=== PATIENT | male | born 2000 | race Caucasian/White ===

== ENCOUNTER 2018-05-23 19:36 | Inpatient (IN) | payer SELFPAY ==
[2018-05-23] MEDS ORDERED: Ibuprofen 200 MG TAB PO PRN (19:49)
[2018-05-23] MEDS ORDERED: Ondansetron PF 4 MG/2 ML Vial IVP PRN (19:49)
[2018-05-23] MEDS ORDERED: Diabetic Tussin 200 MG/10 ML UDCUP PO PRN (19:49)
[2018-05-23] MEDS ORDERED: Ondansetron ODT 4 MG TAB PO PRN (19:49)
[2018-05-23] MEDS ORDERED: Acetaminophen 500 MG TAB PO PRN (19:49)
[2018-05-23] MEDS ORDERED: Benzonatate 100 MG CAP PO PRN (19:49)
[2018-05-23] MEDS ORDERED: Budesonide 0.5 MG/2 ML NEB INH SCH (20:45)
[2018-05-23] MEDS: Sodium Chloride 0.9% 1,000 ML IV SCH (20:51)
[2018-05-23] MEDS: Famotidine 20 MG TAB PO SCH (20:51)
[2018-05-23] MEDS: Oseltamivir 75 MG CAP PO SCH (20:52)
--- NOTE | 2018-05-23 21:34 | HP ---
CHIEF COMPLAINT: Shortness of breath. HISTORY OF PRESENT ILLNESS: This is a 17-year-old male who initially presented to [facility] complaining of increased shortness of breath and general malaise over the last 24 hours. The patient states he has a history of asthma, taking albuterol metered dose inhaler and previously on Pulmicort. The patient states he had been using his inhaler increasingly and went jogging on 05/22/2018 with worsening shortness of breath after the run. The patient states his roommate was recently diagnosed with influenza A and had been initiated on Tamiflu in the last 24 to 48 hours. The patient denied any documented fever or productive cough, but did admit to difficulty taking a deep breath and feeling like his chest was tight. The patient denies any recent new medication exposure, travel history, or recent pneumonia. The patient did state he was diagnosed with mononucleosis at the beginning of the fall in 2017, requiring several weeks of convalescence. In the emergency room, the patient underwent general evaluation including chest imaging showing no acute infiltrates. The patient was evaluated and found with influenza A positivity. The patient received bronchodilator therapy as well as Zosyn, Tylenol, Toradol, and intravenous normal saline x3 liters. The patient was noted with persistent tachycardia and elevated lactic acid level and meeting sepsis protocol. The patient was transferred to [facility] for further evaluation and admission. PAST MEDICAL HISTORY: Moderate asthma. PAST SURGICAL HISTORY: Reviewed and negative. CURRENT MEDICATIONS: 1. Albuterol sulfate metered dose inhaler p.r.n. 2. Pulmicort last taken 6 months prior to this evaluation. ALLERGIES: TO ZITHROMAX, NUTS, AND SHELLFISH. FAMILY HISTORY: No inheritable disease per the patient's report. SOCIAL HISTORY: Occasionally uses tobacco products. Social alcohol use. No illicit drug use. Currently, a student at [employer] and seeking a degree in agricultural economics. Accompanied by his mother in the hospital. REVIEW OF SYSTEMS: CONSTITUTIONAL: Negative for weight loss or gain, ability to conduct usual activities. SKIN: Negative for rash, itching. EYES: Negative for double vision, pain. ENT/MOUTH: Negative for nose bleeding, neck stiffness, pain, tenderness. CARDIOVASCULAR: Negative for palpitations, dyspnea on exertion, orthopnea. RESPIRATORY: Negative for shortness of breath, wheezing, cough, hemoptysis, fever or night sweats. GASTROINTESTINAL: Negative for poor appetite, abdominal pain, heartburn, nausea, vomiting, constipation, or diarrhea. GENITOURINARY: Negative for urgency, frequency, dysuria, nocturia. MUSCULOSKELETAL: Negative for pain, swelling. NEUROLOGIC/PSYCHIATRIC: Negative for anxiety, depression. ALLERGY/IMMUNOLOGIC: Negative for skin rash, bleeding tendency. Otherwise negative except as stated per HPI. PHYSICAL EXAMINATION: VITAL SIGNS: In the emergency room, blood pressure 103/51, pulse 124, respiratory rate 19, temperature 99.4 degrees Fahrenheit, and O2 saturation 100% on room air. GENERAL APPEARANCE: This is a 17-year-old male, alert and oriented x3, pleasant, in no acute distress. HEENT: Pupils are equal, round, and reactive to light and accommodation. Extraocular muscles are intact. No scleral icterus. No conjunctival injection. Nares patent. OP is clear. Teeth in good repair. NECK: Supple. No cervical adenopathy. No thyromegaly. No carotid bruits. No JVD appreciated. Cervical spine with full active and passive range of motion. No meningeal signs noted. CHEST: Expiratory wheezes with diminished breath sounds in the bases bilaterally. CARDIOVASCULAR: S1 and S2 with tachycardia. No murmur, rub, or gallop appreciated. ABDOMEN: Flat, soft, nontender, and nondistended. Bowel sounds are positive in all 4 quadrants. There is no hepatosplenomegaly. No abdominal bruits. No rebound or guarding appreciated. EXTREMITIES: Warm and dry with fair turgor. No clubbing, cyanosis, or asymmetric edema appreciated. Pulses are palpable distally at the dorsalis pedis, posterior tibial, and popliteal arteries bilaterally. Capillary refill less than 2 seconds. NEUROLOGIC: Cranial nerves 2 through 12 are grossly intact. No focal or lateralizing signs appreciated. PERTINENT LAB AND X-RAY FINDINGS: Sodium 134, potassium is 3.8, CO2 of 21, chloride 103, BUN 9, creatinine 1.1, and calcium 8.4. LFTs within normal limits. Venous blood gas showed a pH of 7.42, pCO2 of 28.2, PO2 of 48, lactate 4.55, bicarb 18.1, and O2 saturation 84%. Influenza A positive. CBC showed a white blood cell count of 6.0, hemoglobin 12.9, hematocrit 39, and platelet count 158. Two views of the chest dated 05/23/2018 showed no acute cardiopulmonary process. ASSESSMENT AND PLAN: 1. Sepsis. The patient will be admitted to the telemetry unit. The patient meets sepsis criteria with tachycardia, mild hypotension, lactic acidosis, and tachypnea. We will continue treatment as outlined. 2. The patient received IV fluid resuscitation per protocol in the emergency department. 3. Influenza A positive. We will initiate Tamiflu 75 mg p.o. b.i.d. Add Solu-Medrol 40 mg IV q.6 hours. We will add additional empiric antibiotic coverage with cefepime 2 g IV q.12 hours. 4. Acute asthma exacerbation. Continue oxygen as needed to maintain O2 saturations greater than 90%. Start Pulmicort nebulized solution b.i.d. DuoNeb q.4 hours scheduled. 5. Dehydration. We will continue IV fluids with normal saline 100 mL/h. Encourage increased p.o. free water intake. 6. Lactic acidosis. We will continue IV fluids as outlined previously. Serial lactic acid assessment per sepsis protocol. 7. Prophylaxis. Sequential compression devices while in bed. Pepcid 20 mg p.o. b.i.d. Influenza vaccination prior to discharge. Respiratory isolation protocol. CODE STATUS: Full. Surrogate medical decision maker is the patient's mother. Job ID: [id number]
[2018-05-23] MEDS: Cefepime 2 GM in Sodium Chloride 0.9% 100 ML IVPB SCH (21:42)
[2018-05-23 22:41] VITALS: BMI 22.3
[2018-05-24 00:11] LABS: Lactic Acid 0.9 mmol/L (0.5-2.2)
[2018-05-24 05:31] LABS: Anion Gap 13 mmol/L (10-20); BUN (Urea Nitrogen) 10 mg/dL (8.4-21.0); Calc. Creatinine Clearance 137 mL/min (70-130); Calcium 8.8 mg/dL (7.8-10.44); Carbon Dioxide 19 mmol/L (22-29); Chloride 110 mmol/L (98-107); Estimated GFR-MDRD Greater than 90; Glucose 130 mg/dL (70-105); Potassium 4.2 mmol/L (3.5-5.1); Sodium 138 mmol/L (136-145)
[2018-05-24] MEDS ORDERED: Budesonide 0.5 MG/2 ML NEB INH SCH (06:30)
[2018-05-24 07:10] LABS: Band 10 % (5-11); Hemoglobin 13.4 g/dL (14.0-18.0); Lymphocytes 8 % (28-48); MDiff Complete? YES; Mean Corpuscular HGB CONC 33.9 g/dL (32.0-36.0); Mean Corpuscular Hemoglobin 31.7 pg (25.0-35.0); Mean Corpuscular Volume 93.5 fL (78.0-98.0); Mean Platelet Volume 8.9 fL (7.4-10.4); Monocytes 1 % (0-4); Neutrophil 81 % (31-61); Platelet Count 183 thou/uL (130-400); RBC Distribution Width 12.5 % (11.5-14.5); Red Blood Cell (RBC) Count 4.25 mill/uL (4.00-5.20); White Blood Cell (WBC) Count 5.7 thou/uL (4.8-10.8)
[2018-05-24] MEDS ORDERED: Bisacodyl 5 MG TAB PO PRN (07:24)
[2018-05-24] MEDS ORDERED: hydrALAZINE 20 MG/ML VIAL SLOW IVP PRN (07:24)
[2018-05-24] MEDS ORDERED: Loratadine 10 MG TAB PO PRN (07:24)
[2018-05-24] MEDS ORDERED: Sodium Chloride 0.65% Nasal 44 ML BOT EA NARE PRN (07:24)
[2018-05-24] MEDS ORDERED: Cepastat Lozenges 1 LOZ PO PRN (07:24)
[2018-05-24] MEDS ORDERED: Calcium Carbonate 500 MG ChewTAB PO PRN (07:24)
[2018-05-24] MEDS ORDERED: Eucerin (Mineral Oil/Petrolatum,White) 30 gm Jar TOP PRN (07:24)
[2018-05-24] MEDS ORDERED: Artificial Tears 18 DROP/0.9 ML EA EYE PRN (07:24)
[2018-05-24] MEDS ORDERED: Senokot S 8.6-50 MG TAB PO PRN (07:24)
[2018-05-24] MEDS ORDERED: Zolpidem Tartrate 5 MG TAB PO PRN (07:24)
[2018-05-24] MEDS ORDERED: Loperamide HCl 2 MG CAP PO PRN (07:24)
[2018-05-24] MEDS: Sodium Chloride 0.9% 1,000 ML IV SCH (07:54)
[2018-05-24] MEDS: Cefepime 2 GM in Sodium Chloride 0.9% 100 ML IVPB SCH (07:55)
[2018-05-24] MEDS: Oseltamivir 75 MG CAP PO SCH (07:56)
[2018-05-24] MEDS: Famotidine 20 MG TAB PO SCH (07:56)
--- NOTE | 2018-05-24 09:29 | PDOC.PN ---
- Subjective Encounter Start Date: 05/24/18 Encounter Start Time: 09:30 Subjective: f/u for sepsis, Influenza A on current Tamiflu, Cefepime. Feels better -: overall. Some body aches. - Objective Resuscitation Status - Order Detail: 05/23/18 19:43 Resuscitation Status Routine Resuscitation Status: FULL: Full Resuscitation MAR Reviewed: Yes Vital Signs & Weight: Vital Signs (12 hours) Temp Pulse Resp BP Pulse Ox 05/24/18 07:48 99.0 F 108 H 16 109/53 L 98 05/24/18 06:58 92 L 05/24/18 06:45 117 H 18 05/24/18 04:38 99.6 F 106 H 16 109/53 L 92 L 05/24/18 01:40 98 05/24/18 01:34 109 H 16 98 Weight Weight 160 lb Result Diagrams: 05/24/18 04:36 05/24/18 04:36 Additional Labs: Microbiology 05/23/18 20:07 Venous blood - Right Arm Blood Culture - Preliminary Specimen has been received and culture in progress. No Growth to date. 05/23/18 20:07 Venous blood - Left Hand Blood Culture - Preliminary Specimen has been received and culture in progress. No Growth to date. Laboratory Tests 05/23/18 05/23/18 05/24/18 20:07 23:45 04:36 Neutrophils % (Manual) 81 H Lactic Acid 3.0 H 0.9 EKG Reviewed by me: Yes (Tele - Sinus tach in low 100's) Phys Exam - Physical Examination Constitutional: NAD HEENT: PERRLA, sclera anicteric, oral pharynx no lesions Neck: no nodes, no JVD, supple, full ROM few exp wheezes o/w clear S1, S2 Cardiovascular: RRR, no significant murmur, no rub, gallop Gastrointestinal: soft, non-tender, no distention, positive bowel sounds Musculoskeletal: no edema, pulses present Neurological: normal sensation, moves all 4 limbs Psychiatric: A&O x 3 Skin: normal turgor, cap refill <2 seconds Dx/Plan (1) Sepsis Code(s): A41.9 - SEPSIS, UNSPECIFIED ORGANISM Status: Acute Comment: Continue mgmt as outlined in #2, saline lock IVF, lactate normalizing (2) Influenza A Code(s): J10.1 - FLU DUE TO OTH IDENT INFLUENZA VIRUS W OTH RESP MANIFEST Status: Acute Comment: Continue Tamiflu 75mg BID, respiratory isolation, Duonebs, Pulmicort (3) Asthma exacerbation Code(s): J45.901 - UNSPECIFIED ASTHMA WITH (ACUTE) EXACERBATION Status: Acute Comment: Continue Duonebs, Pulmicort, Solumedrol (4) Dehydration Code(s): E86.0 - DEHYDRATION Status: Acute Comment: Improved, saline lock IVF, encourage increased free-H2O intake po (5) Lactic acidosis Code(s): E87.2 - ACIDOSIS Status: Acute Comment: Resolving, continue mgmt as outlined above - Plan plan discussed w/ family, continue antibiotics, respiratory therapy, out of bed/ ambulate Stable currently -: Continue Tamiflu -: Continue Cefepime -: Saline lock IVF's -: ? d/c later this pm * .
[2018-05-24 11:31] VITALS: BP 108/54; TEMP 98.3
--- NOTE | 2018-05-24 17:43 | DIS ---
DATE OF ADMISSION: 05/23/2018 DATE OF DISCHARGE: 05/24/2018 DISCHARGE DIAGNOSES: 1. Sepsis secondary to #2, resolving. 2. Influenza A. 3. Acute asthma exacerbation secondary to #2. 4. Dehydration, resolving. 5. Lactic acidosis, resolving. CONSULTATIONS: None. PERTINENT LAB AND X-RAY FINDINGS: Lactic acid level ranged between 0.9 to 3.0. Blood cultures x2 dated 05/23/2018 showed no growth to date. PA and lateral chest x-ray dated 05/23/2018 showed no acute cardiopulmonary process. HOSPITAL COURSE: The patient was admitted to the telemetry unit after initially presenting with shortness of breath, fever, and general malaise. The patient underwent extensive evaluation with screening influenza A positive. Initial chest imaging showed no acute infiltrate. However, the patient was noted with several sepsis criteria after receiving IV fluids, Zosyn, Tylenol, and Toradol. The patient persisted with sinus tachycardia as well as lactic acidosis and was referred for admission. The patient continued to receive Tamiflu during the hospital course 75 mg twice daily in addition to general resuscitative measures with IV fluids. The patient was also placed on IV Solu-Medrol and bronchodilator therapy with Pulmicort and DuoNeb. The patient clinically improved in the first hours with stabilization of vital signs. Lactic acidosis resolved with general supportive care and IV fluids and the patient was noted with O2 saturations in the upper 90% range on room air. I have examined the patient at the time of discharge and discussed followup instructions. The patient and mother verbalized understanding and in agreement. The patient is clinically stable and ready for discharge on 05/24/2018. DISCHARGE MEDICATIONS: 1. Albuterol sulfate two puffs inhaled q.4 hours p.r.n. 2. Tamiflu 75 mg p.o. b.i.d. x4 days. 3. Prednisone 10 mg two tablets p.o. b.i.d. x2 days, followed by 1 tab p.o. b.i.d. x2 days, followed by 1 tab p.o. daily x2 days, followed by half a tab p.o. daily x2 days. 4. Pulmicort Flexhaler 180 mcg inhaled b.i.d. 5. Albuterol nebulized solution 0.083% inhaled q.i.d. p.r.n. 6. Zyrtec 10 mg p.o. daily. FOLLOWUP: The patient may follow up with his primary care provider in the [facility] after discharge. CONDITION ON DISCHARGE: Stable. ACTIVITY: Ad-evgeny. DIET: Regular. CODE STATUS: Full. DISPOSITION: Home, 05/24/2018. TIME SPENT: Total time preparing and coordinating discharge is 33 minutes. Job ID: [id number]
== END 2018-05-24 17:50 | disposition home or self-care (01) | DRG 872 ==
LOC: 2NO 19:36
PROVIDERS: ADMIT Family Medicine; ATTEND Family Medicine
DX: A41.89 Other specified sepsis (principal); E87.2 Acidosis; J45.901 Unspecified asthma with (acute) exacerbation; J10.1 Influenza due to other identified influenza virus with other respiratory manifestations; E86.0 Dehydration; Z79.899 Other long term (current) drug therapy
CPT/HCPCS: 36415; 80048; 83605; 85007; 85027; 87040; 94640; J0692; J2920; J7050; J7620; J7626; Q0162